=== PATIENT | female | born 1950 | race Caucasian/White ===

== ENCOUNTER 2020-08-19 18:15 | Emergency (ER) | payer MEDICARE, SELFPAY ==
[2020-08-19 18:25] VITALS: BP 136/89; PULSE 80; RESP 16; TEMP 36.6; O2SAT 100; BMI 32.9
--- NOTE | 2020-08-19 18:25 | PC.NURSE ---
Patient fell hiking injuring her right upper arm/shoulder. Arrives splinted by EMS. 10/03 pain, able to move fingers, sensation intact distal to injury. Denies c-spine tenderness, ambulatory on scene and transfer to bed.
--- NOTE | 2020-08-19 18:57 | ED_ITS ---
HPI - Extremity Injury (Upper) <Wanda Hernandez DO - Last Filed: 08/21/20 08:08> General Chief Complaint: Extremity Injury, Upper Stated Complaint: Fall while hiking/ rt arm injury. Time Seen by Provider: 08/19/20 18:48 Source: patient and EMS Mode of arrival: EMS Limitations: no limitations History of Present Illness HPI narrative: This is a 70-year-old male who states that she was hiking, when she did quite lift her foot and tripped falling onto her right shoulder. Patient states she heard a crack and has significant pain up in the right shoulder upper humeral area. She also describes some pain in the left lower ribs. Patient denies hitting her head. She denies any neck pain. She denies any shortness of breath. She did have some nausea and vomiting on the way here with EMS after she received fentanyl. She denies any other new GI or urinary symptoms. She denies any thoracic or low back pain. She denies any injury to her lower legs. Patient states she has had some chronic memory issues which have been slowly worsening sometimes has a hard time finding things even in her own home. She has a history of Crohn's disease and takes prednisone daily. She states she has a history of 2 colon resections as well as . She know she has an allergy but does not know what it is. We were able to contact her and is Celebrex. Patient lives in [place] with her and they are currently visiting for the next 3 weeks and living on their boat. Related Data Previous Rx's Medication Instructions Recorded oxycodone 5 mg PO Q6H PRN #20 tab 08/19/20 Allergies Allergy/AdvReac Type Severity Reaction Status Date / Time celecoxib [From Celebrex] Allergy Verified 08/19/20 18:55 Review of Systems <Wanda Hernandez DO - Last Filed: 08/21/20 08:08> Review of Systems ROS Unobtainable: All systems reviewed & are unremarkable except as noted in HPI and below Patient History <Wanda Hernandez DO - Last Filed: 08/21/20 08:08> Medical History (Updated 08/19/20 @ 21:51 by Wanda Hernandez DO) Crohn's disease Surgical History (Updated 08/19/20 @ 19:07 by Wanda Hernandez DO) History of History of colon resection Social History Smoking Status: Never smoker Smoking Status: Never smoker alcohol intake frequency: 0-2 drinks per day Substance Use Type: does not use Exam <Wanda Hernandez DO - Last Filed: 08/21/20 08:08> Narrative Exam Narrative: GEN:Patient appears in mild distress. HEAD: No evidence of trauma, no raccoon/Dalal sign. NECK: Nontender, painless range of motion, trachea midline Negative Nexus criteria, there is no mid line tenderness, distracting injury, possible altered mental status but likely patient's baseline, neuro deficit, recent EtOH. EYES: PERRLA, EOMI ENT: External inspection normal, trachea is midline, TM's are normal no hemotypanum, Nares are clear, no septal hematoma, no dental or oral injury, airway is normal and with normal occlusion, No bony tenderness RESP: Chest is tender on the left ribs at rib 10. No ecchymosis. Has symmetric movement, no ecchymosis, breath sounds are normal no crackles, wheezes or rales CVS: Heart sounds are normal, no murmur noted, No JVD. ABG/GI: Nontender, soft, normal bowel sounds, no distention, no organomegaly, pelvic rock is negative NEURO: Oriented AOx3, neuro is grossly intact, sensation and motor is normal all 4 extremities moving, cranial nerves II through XII are intact, GCS is 15 PSYCH: Normal mood and affect SKIN: Intact, warm and dry, no crepitus and without decubitus BACK: No CVA tenderness, no vertebral tenderness, no step-off's, no crepitus EXT: Patient's right arm is in a sling, she has 2+ radial pulse, full range of motion of all 5 fingers with no decreased sensation and is neurovascularly intact cap refill less than 2 seconds in all 5 fingers with good flexion- extension at the wrist. hips are nontender, no pedal edema, normal color and temperature, normal range of motion of extremities with normal tendon exam the rest of extremities. Initial Vital Signs Initial Vital Signs: Vital Signs Temperature 97.8 F 08/19/20 18:25 Pulse Rate 80 08/19/20 18:25 Respiratory Rate 16 08/19/20 18:25 Blood Pressure 136/89 08/19/20 18:25 Pulse Oximetry 100 08/19/20 18:25 <Alexys Banks DO - Last Filed: 08/20/20 19:23> Initial Vital Signs Initial Vital Signs: Vital Signs Temperature 97.8 F 08/19/20 18:25 Pulse Rate 80 08/19/20 18:25 Respiratory Rate 16 08/19/20 18:25 Blood Pressure 136/89 08/19/20 18:25 Pulse Oximetry 100 08/19/20 18:25 Scores <Wanda Hernandez DO - Last Filed: 08/21/20 08:08> GCS [place] coma scale eye opening: Spontaneous Vlad coma scale verbal response: Orientated Vlad coma scale motor response: Obey commands [place] coma scale total score: 15 Course <Wanda Hernandez DO - Last Filed: 08/21/20 08:08> Orders Ordered: Discontinued Medications Morphine Sulfate (Morphine 4 Mg/Ml Inj) 4 mg IM NOW ONE Stop: 08/19/20 19:05 Last Admin: 08/19/20 19:12 Dose: 4 mg Documented by: AMADEO Ondansetron HCl (Ondansetron 4 Mg Odt) 4 mg SL NOW ONE Stop: 08/19/20 19:05 Last Admin: 08/19/20 19:12 Dose: 4 mg Documented by: AMADEO Oxycodone HCl (Oxycodone Ir 5 Mg Tablet) 5 mg PO NOW ONE Stop: 08/19/20 20:33 Last Admin: 08/19/20 20:37 Dose: 5 mg Documented by: AMADEO Oxycodone HCl (Oxycodone Ir 5 Mg Tablet) 5 mg PO Q4H PRN PRN Reason: pain Last Admin: 08/20/20 11:33 Dose: 5 mg Documented by: Admin: 08/20/20 06:54 Dose: 5 mg Documented by: AMADEO Oxycodone/Acetaminophen (Oxycodone/Apap 5/325 Prepack) 1 bottle MISC SEEINSTR ONE Stop: 08/19/20 21:54 Prednisone (Prednisone 5 Mg Tablet) 5 mg PO DAILY AWILDA Reevaluation(s) Reevaluation #1: Patient is in sling, NVI on recheck with good flexion extension the wrist as well as full range of motion of the fingers. Patient's pain is controlled at this time. Her is currently on a sailboat at [facility] and cannot leave until the tides change, he will then have to sell to [employer] and drive down to [place] the patient. He states he will not be able to arrive until after noon tomorrow. They did attempt to set up placed for the patient to some friends locally but were unable to establish this option. Patient will be boarded overnight, p.o. oxycodone as needed and her ride will be coming likely an early afternoon. Time: 22:13 Consultations Consultation #1: Dr. Argueta, recommends coaptation splint and sling. Patient does have flexion-extension of the wrist and full movement in her fingers. She is neurovascularly intact. Plan for follow-up. Time: 20:36 Vital Signs Vital signs: Vital Signs - 8 hr 08/20/20 13:40 Pulse Rate 76 Respiratory Rate 16 Blood Pressure 150/79 H Pulse Oximetry 98 <Alexys Banks DO - Last Filed: 08/20/20 19:23> Orders Ordered: Discontinued Medications Morphine Sulfate (Morphine 4 Mg/Ml Inj) 4 mg IM NOW ONE Stop: 08/19/20 19:05 Last Admin: 08/19/20 19:12 Dose: 4 mg Documented by: AMADEO Ondansetron HCl (Ondansetron 4 Mg Odt) 4 mg SL NOW ONE Stop: 08/19/20 19:05 Last Admin: 08/19/20 19:12 Dose: 4 mg Documented by: AMADEO Oxycodone HCl (Oxycodone Ir 5 Mg Tablet) 5 mg PO NOW ONE Stop: 08/19/20 20:33 Last Admin: 08/19/20 20:37 Dose: 5 mg Documented by: AMADEO Oxycodone HCl (Oxycodone Ir 5 Mg Tablet) 5 mg PO Q4H PRN PRN Reason: pain Last Admin: 08/20/20 11:33 Dose: 5 mg Documented by: Admin: 08/20/20 06:54 Dose: 5 mg Documented by: AMADEO Oxycodone/Acetaminophen (Oxycodone/Apap 5/325 Prepack) 1 bottle MISC SEEINSTR ONE Stop: 08/19/20 21:54 Prednisone (Prednisone 5 Mg Tablet) 5 mg PO DAILY AWILDA Vital Signs Vital signs: Vital Signs - 8 hr 08/20/20 13:40 Pulse Rate 76 Respiratory Rate 16 Blood Pressure 150/79 H Pulse Oximetry 98 [facility] - Extremity Injury (Upper) <Wanda Hernandez, DO - Last Filed: 08/21/20 08:08> Imaging Data Extremity x-ray #1: Radiologist's Impression: [address] [id number] ReportSigned Patient: Criss Weller [facility]#: [id number]: [id number]:[id number]/Sex: 70 / FDate of Service: 08/19/20Loc: EDAccession Number: [id number] Procedure: XR humerus RT 2V Ordering Provider: Wanda Hernandez D.O. PROCEDURE: XR HUMERUS RT 2V INDICATIONS: fall, ? fx TECHNIQUE: 2 views of the humerus were acquired. COMPARISON: None. FINDINGS: Bones: Moderately displaced mid/proximal humeral fracture. Soft tissues: No suspicious soft tissue calcifications. IMPRESSION: Proximal humeral fracture. Dictated by: Darlin Antoine M.D. on 08/19/2020 at 19:55 Approved by: Darlin Antoine M.D. on 08/19/2020 at 19:55 <Alexys Banks, DO - Last Filed: 08/20/20 19:23> [facility] Narrative Medical decision making narrative: Dr banks: Received turned over from Dr. hernandez. Patient stated the emergency department until she was available be picked up by family. Discharged without incident. Discharge Plan Departure Patient Disposition: Home Clinical Impression: Thyroid mass Humeral fracture Qualifiers: Encounter type: initial encounter Humerus Location: proximal Fracture type: closed Laterality: right Instructions: DI for Humeral Fracture Activity Restrictions/Additional Instructions: Call to set up follow-up with orthopedic surgery within the week. You may call tomorrow morning. Referral information below is for [facility] but they also have an office here locally in [place]. Just let the office know if you prefer to follow more locally. If you prefer you may follow-up with orthopedic surgery in [place] you may ask your primary care physician for referral if you are not sure who to follow up with. Your CT imaging shows a bilateral thyroid mass which should have follow up with ultrasound imaging which can be arranged with your primary care physician. You may take Tylenol up to a 1000 mg every 8 hours as needed for pain. You may take oxycodone 1-2 tablets every 6 hours as needed for pain. This medication can make you sleepy do not drive, perform hazardous activities or make any major decisions while taking it. This medication will make you constipated please take a stool softener once to twice daily until stools are s oft and regular. Prescription sent to [facility] in [place] Splint Care: Keep splint clean and dry. Elevated affected body part to decrease swelling. OK to use ice pack on the affected body part. Use for 15-20 minutes each time, for 5-6x per day. If you develop worsening pain, numbness, tingling, discoloration of the affected body part, loosen the splint by loosening the SOTO wrap or adjusting the sling, and either see your doctor for an urgent re-assessment, or return to the Emergency Department. Return to the Emergency Department for any new or worsening symptoms. Prescriptions: New oxycodone 5 mg tablet 5 mg PO Q6H PRN (Reason: pain) Qty: 20 RF: 0 Referrals: Vlad Argueta MD [Physician] -
--- NOTE | 2020-08-19 19:04 | DI.RAD.S_ITS ---
PROCEDURE: XR RIBS LT MIN 3V W CXR1V INDICATIONS: fall, left rib pain. TECHNIQUE: 2 views of the left ribs were acquired, along with a single view chest. COMPARISON: [facility], CT, CT CERVICAL SPINE WO [facility], 08/19/2020, 19:12. FINDINGS: Surgical changes and devices: Metallic device projects over the right lung apex. Bones and chest wall: No fractures or dislocations. No suspicious bony lesions. Overlying soft tissues appear unremarkable. Lungs and pleura: No pleural effusions or pneumothorax. Lungs appear clear. Mediastinum: Mediastinal contours appear normal. Heart size is normal. IMPRESSION: No acute fracture. No osseous lesion. If symptoms and/or clinical suspicion for pathology persist, further assessment with repeat, or advanced imaging (e.g., CT or bone scan) may be helpful for further assessment. Dictated by: Darlin Antoine M.D. on 08/19/2020 at 19:56 Approved by: Darlin Antoine M.D. on 08/19/2020 at 19:57
--- NOTE | 2020-08-19 19:04 | DI.CT.S_ITS ---
PROCEDURE: CT CERVICAL SPINE WO CON INDICATIONS: fall, chronic medical issues TECHNIQUE: Noncontrast 3 mm thick sections acquired from the skull base to the T4 level. Sagittal and coronal reformats were then constructed. For radiation dose reduction, the following was used: automated exposure control, adjustment of mA and/or kV according to patient size. COMPARISON: None. FINDINGS: Image quality: Excellent. Bones: No fractures or dislocations. Visualized superior ribs are intact. Soft tissues: Prevertebral soft tissues are normal in thickness. No paravertebral hematomas. No apical pneumothoraces. Bilateral thyroid masses are present, measuring 23 mm bilaterally. IMPRESSION: 1. No fracture. 2. Bilateral thyroid masses. Nonemergent outpatient follow-up thyroid ultrasound is recommended. Dictated by: Darlin Antoine M.D. on 08/19/2020 at 19:38 Approved by: Darlin Antoine M.D. on 08/19/2020 at 19:39
--- NOTE | 2020-08-19 19:04 | DI.CT.S_ITS ---
PROCEDURE: CT HEAD/BRAIN WO CON INDICATIONS: fall, chronic memory issues TECHNIQUE: Noncontrast 4.5 mm thick angled axial sections acquired from the foramen magnum to the vertex, with coronal and sagittal reformats. For radiation dose reduction, the following was used: automated exposure control, adjustment of mA and/or kV according to patient size. COMPARISON: None. FINDINGS: Image quality: Excellent. CSF spaces: Basal cisterns are patent. No extra-axial fluid collections. The ventricles are symmetric in size and shape. Brain: No intracranial bleeds or masses. There is cerebral volume loss for age, with resultant ventricular and sulcal prominence. There are periventricular and deep white matter chronic small vessel ischemic changes. There is intracranial internal carotid artery atherosclerosis. Skull and face: Calvarium and visualized facial bones appear intact, without suspicious lesions. Sinuses: Visualized sinuses and mastoids are clear. IMPRESSION: No acute intracranial abnormality. Dictated by: Darlin Antoine M.D. on 08/19/2020 at 19:37 Approved by: Darlin Antoine M.D. on 08/19/2020 at 19:38
--- NOTE | 2020-08-19 19:04 | DI.RAD.S_ITS ---
PROCEDURE: XR HUMERUS RT 2V INDICATIONS: fall, ? fx TECHNIQUE: 2 views of the humerus were acquired. COMPARISON: None. FINDINGS: Bones: Moderately displaced mid/proximal humeral fracture. Soft tissues: No suspicious soft tissue calcifications. IMPRESSION: Proximal humeral fracture. Dictated by: Darlin Antoine M.D. on 08/19/2020 at 19:55 Approved by: Darlin Antoine M.D. on 08/19/2020 at 19:55
[2020-08-19] MEDS: MORPHINE 4 MG/ML INJ IM (19:12)
[2020-08-19] MEDS: ONDANSETRON 4 MG ODT SL (19:12)
[2020-08-19] MEDS: OXYCODONE IR 5 MG TABLET PO (20:37)
[2020-08-20] MEDS: OXYCODONE IR 5 MG TABLET PO ×2 (06:54→11:33)
[2020-08-20 13:40] VITALS: BP 150/79; PULSE 76; RESP 16; O2SAT 98
== END 2020-08-20 13:41 | disposition home or self-care (01) ==
PROVIDERS: Emergency Provider Emergency Medicine
DX: S42.301A Unspecified fracture of shaft of humerus, right arm, initial encounter for closed fracture (principal); E07.9 Disorder of thyroid, unspecified; W19.XXXA Unspecified fall, initial encounter
CPT/HCPCS: 70450; 71101; 72125; 73060; 96372; 99284; J2270